=== PATIENT | female | born 1995 | race Caucasian/White ===

== ENCOUNTER 2017-10-09 12:22 | Emergency (ER) | payer MEDICAID ==
[~2017-10-09] VITALS: Ht 167.6 cm; Wt 87.0 kg
[~2017-10-09 12:22] MED LIST: [UNRECOGNIZED DRUG - REMARK]
[2017-10-09 15:01] LABS: BASOPHILS % 0.5 % (0.0-2.0); EOSINOPHILS % 1.2 % (0.0-5.0); HEMATOCRIT. 41.6 % (36.0-48.0); HEMOGLOBIN. 14.4 g/dL (12.0-16.0); LYMPHOCYTES % 16.4 % (20.0-50.0); MEAN CORPUSCULAR HEMOGLOBIN 30.3 pg (28.0-32.0); MEAN CORPUSCULAR VOLUME 87.6 fL (81.0-99.0); MEAN PLATELET VOLUME 8.2 fl (7.4-10.4); MONOCYTES % 11.7 % (2.0-8.0); NEUTROPHILS % 70.2 % (40.0-76.0); PLATELET 279 x1000/uL (130-400); RED BLOOD CELL COUNT 4.75 mill/uL (4.2-5.4); RED CELL DISTRIBUTION WIDTH 14.7 % (11.6-14.6)
[2017-10-09 15:02] LABS: CHLORIDE 104 mEq/L (98-107)
[2017-10-09 15:05] LABS: PROTHROMBIN TIME 10.7 sec (9.4-11.6)
[2017-10-09 15:30] LABS: HCG SCREEN NEGATIVE
[2017-10-09 15:52] LABS: CLARITY URINE CLEAR (CLEAR); COLOR URINE RED (YELLOW); KETONES URINE NEGATIVE (NEGATIVE); LEUKOCYTE ESTERASE URINE 1+ (NEGATIVE); NITRITE URINE NEGATIVE (NEGATIVE); OCCULT BLOOD URINE 3+ (NEGATIVE); PH URINE 6.5 (4.5-8.0); PROTEIN URINE 1+ (NEGATIVE); UROBILINOGEN URINE 0.2 E.U./dL (0.2-1.0)
[2017-10-09] MEDS ORDERED: KETOROLAC 30MG/ML VIAL IV ONE (16:45)
[2017-10-09 20:45] VITALS: BP 136/78
== END 2017-10-09 21:15 | disposition home or self-care (01) ==
LOC: ER 12:22
DX: R10.31 Right lower quadrant pain (principal); N93.9 Abnormal uterine and vaginal bleeding, unspecified; F12.10 Cannabis abuse, uncomplicated; Z88.0 Allergy status to penicillin
CPT/HCPCS: 36415; 76705; 76830; 76856; 80053; 81003; 81025; 83690; 84703; 85025; 85610; 96374; 99285; J1885; Z7610

== ENCOUNTER 2018-09-25 11:35 | Emergency (ER) | payer MEDICAID, OTHER ==
[~2018-09-25] VITALS: Ht 167.6 cm; Wt 96.0 kg
[2018-09-25] MEDS ORDERED: IBUPROFEN 600MG TABLET PO STA (14:38)
[2018-09-25 15:00] LABS: BASOPHILS % 0.4 % (0.0-2.0); EOSINOPHILS % 1.1 % (0.0-5.0); HEMATOCRIT. 42.3 % (36.0-48.0); HEMOGLOBIN. 14.3 g/dL (12.0-16.0); MEAN CORPUSCULAR HEMOGLOBIN 29.1 pg (28.0-32.0); MEAN CORPUSCULAR VOLUME 86.5 fL (81.0-99.0); MEAN PLATELET VOLUME 8.4 fl (7.4-10.4); MONOCYTES % 5.3 % (2.0-8.0); NEUTROPHILS % 69.2 % (40.0-76.0); PLATELET 286 x1000/uL (130-400); RED BLOOD CELL COUNT 4.89 mill/uL (4.2-5.4); RED CELL DISTRIBUTION WIDTH 13.6 % (11.6-14.6)
[2018-09-25 15:07] LABS: CHLORIDE 106 mEq/L (98-107)
[2018-09-25 16:32] VITALS: BP 127/92
== END 2018-09-25 16:34 | disposition home or self-care (01) ==
LOC: ER 11:35
DX: R07.9 Chest pain, unspecified (principal)
CPT/HCPCS: 36415; 71045; 93005; 99284

== ENCOUNTER 2019-04-03 12:01 | Emergency (ER) | payer MEDICAID, OTHER ==
[~2019-04-03] VITALS: Ht 167.6 cm; Wt 86.0 kg
[2019-04-03] MEDS ORDERED: SODIUM CHLORIDE 0.9% 1,000 ML IV ONE (15:33)
[2019-04-03] MEDS ORDERED: ONDANSETRON HCL 4MG/2ML INJ IV STA (15:33)
[2019-04-03] MEDS ORDERED: FAMOTIDINE 20MG/2ML VIAL IV ONE (15:45)
[2019-04-03] MEDS ORDERED: MAGNESIUM/ALUMINUM HYDROXIDE/SIMETHICONE 30ML UDC PO ONE (15:45)
[2019-04-03 16:02] LABS: BASOPHILS % 0.3 % (0.0-2.0); EOSINOPHILS % 0.4 % (0.0-5.0); HEMATOCRIT. 43.2 % (36.0-48.0); HEMOGLOBIN. 14.4 g/dL (12.0-16.0); LYMPHOCYTES % 17.8 % (20.0-50.0); MEAN CORPUSCULAR HEMOGLOBIN 28.1 pg (28.0-32.0); MEAN CORPUSCULAR VOLUME 84.3 fL (81.0-99.0); MEAN PLATELET VOLUME 8.2 fl (7.4-10.4); MONOCYTES % 5.1 % (2.0-8.0); NEUTROPHILS % 76.4 % (40.0-76.0); PLATELET 306 x1000/uL (130-400); RED BLOOD CELL COUNT 5.12 mill/uL (4.2-5.4); RED CELL DISTRIBUTION WIDTH 14.9 % (11.6-14.6)
[2019-04-03 16:05] LABS: CHLORIDE 104 mEq/L (98-107)
[2019-04-03 16:09] LABS: ETHANOL BLOOD < 10 mg/dL
[2019-04-03 16:13] LABS: HCG SCREEN NEGATIVE
[2019-04-03 17:21] VITALS: BP 140/70
[2019-04-03 18:18] LABS: CLARITY URINE CLEAR (CLEAR); COLOR URINE YELLOW (YELLOW); KETONES URINE NEGATIVE (NEGATIVE); LEUKOCYTE ESTERASE URINE NEGATIVE (NEGATIVE); NITRITE URINE NEGATIVE (NEGATIVE); OCCULT BLOOD URINE TRACE (NEGATIVE); PH URINE 7.5 (4.5-8.0); PROTEIN URINE NEGATIVE (NEGATIVE); SPECIFIC GRAVITY URINE 1.013 (1.005-1.030); UROBILINOGEN URINE 0.2 E.U./dL (0.2-1.0)
[2019-04-03 18:31] LABS: *BARBITURATES SCREEN URINE NEGATIVE (NEGATIVE); *BENZODIAZEPINES SCREEN URINE NEGATIVE (NEGATIVE); *COCAINE SCREEN URINE NEGATIVE (NEGATIVE); METHADONE URINE SCREEN NEGATIVE (NEGATIVE); OPIATES URINE SCREEN NEGATIVE (NEGATIVE); PHENCYCLIDINE URINE SCREEN NEGATIVE (NEGATIVE)
[2019-04-03 18:32] LABS: *AMPHETAMINES SCREEN URINE NEGATIVE (NEGATIVE)
[2019-04-03 18:37] LABS: CANNABINOID URINE SCREEN PRESUMTIVE POSITIVE (NEGATIVE)
== END 2019-04-03 18:58 | disposition home or self-care (01) ==
LOC: ER 12:01
DX: R10.9 Unspecified abdominal pain (principal); N39.0 Urinary tract infection, site not specified; K21.9 Gastro-esophageal reflux disease without esophagitis; I10 Essential (primary) hypertension; F17.200 Nicotine dependence, unspecified, uncomplicated; Z71.6 Tobacco abuse counseling; Z88.0 Allergy status to penicillin
CPT/HCPCS: 36415; 71045; 80053; 80305; 80320; 81003; 83690; 83880; 84484; 84703; 85025; 93005; 96361; 96374; 96375; 99284; J2405; J3490; J7030; G0480

== ENCOUNTER 2020-04-26 17:50 | Emergency (ER) | payer OTHER ==
[~2020-04-26] VITALS: Ht 165.1 cm; Wt 90.9 kg
[2020-04-26] MEDS ORDERED: ONDANSETRON HCL 4MG/2ML INJ IV STA (18:29)
[2020-04-26] MEDS ORDERED: SODIUM CHLORIDE 0.9% 1,000 ML IV ONE (18:30)
[2020-04-26] MEDS ORDERED: FAMOTIDINE 20MG/2ML VIAL IV ONE (19:30)
[2020-04-26] MEDS ORDERED: KETOROLAC 30MG/ML VIAL IV ONE (19:30)
[2020-04-26 20:25] LABS: CLARITY URINE CLOUDY (CLEAR); COLOR URINE YELLOW (YELLOW); KETONES URINE NEGATIVE (NEGATIVE); LEUKOCYTE ESTERASE URINE NEGATIVE (NEGATIVE); NITRITE URINE NEGATIVE (NEGATIVE); OCCULT BLOOD URINE TRACE (NEGATIVE); PROTEIN URINE 1+ (NEGATIVE); SPECIFIC GRAVITY URINE 1.031 (1.005-1.030)
[2020-04-26 20:25] LABS: BASOPHILS % 0.4 % (0.0-2.0); EOSINOPHILS % 1.3 % (0.0-5.0); HEMATOCRIT. 43.2 % (36.0-48.0); HEMOGLOBIN. 14.4 g/dL (12.0-16.0); LYMPHOCYTES % 22.4 % (20.0-50.0); MEAN CORPUSCULAR HEMOGLOBIN 28.3 pg (28.0-32.0); MEAN CORPUSCULAR VOLUME 84.8 fL (81.0-99.0); MEAN PLATELET VOLUME 8.5 fl (7.4-10.4); MONOCYTES % 6.6 % (2.0-8.0); NEUTROPHILS % 69.3 % (40.0-76.0); PLATELET 318 x1000/uL (130-400); RED CELL DISTRIBUTION WIDTH 14.5 % (11.6-14.6)
[2020-04-26 20:30] LABS: CHLORIDE 104 mEq/L (98-107)
[2020-04-26 20:33] LABS: HCG SCREEN NEGATIVE
[2020-04-26 20:34] LABS: PROTHROMBIN TIME 10.2 sec (9.6-11.0)
[2020-04-26 21:36] VITALS: BP 142/82
== END 2020-04-26 21:38 | disposition home or self-care (01) ==
LOC: ER 17:50
DX: K29.70 Gastritis, unspecified, without bleeding (principal); I10 Essential (primary) hypertension; F12.10 Cannabis abuse, uncomplicated; Z88.0 Allergy status to penicillin
CPT/HCPCS: 36415; 71045; 80053; 81003; 81025; 83690; 84703; 85025; 85610; 93005; 96361; 96374; 96375; 99285; J1885; J2405; J3490; J7030

== ENCOUNTER 2020-05-16 17:04 | Emergency (ER) | payer OTHER ==
[~2020-05-16] VITALS: Ht 167.6 cm; Wt 95.0 kg
[2020-05-16] MEDS ORDERED: ACETAMINOPHEN 325MG TABLET PO STA (21:20)
[2020-05-16] MEDS ORDERED: ONDANSETRON HCL 4MG/2ML INJ IV ONE (21:30)
[2020-05-16] MEDS ORDERED: MAGNESIUM/ALUMINUM HYDROXIDE/SIMETHICONE 30ML UDC PO ONE (21:30)
[2020-05-16] MEDS ORDERED: FAMOTIDINE 20MG/2ML VIAL IV ONE (21:30)
[2020-05-16 22:13] LABS: BASOPHILS % 0.4 % (0.0-2.0); EOSINOPHILS % 1.6 % (0.0-5.0); HEMATOCRIT. 40.9 % (36.0-48.0); HEMOGLOBIN. 13.6 g/dL (12.0-16.0); LYMPHOCYTES % 27.3 % (20.0-50.0); MEAN CORPUSCULAR HEMOGLOBIN 27.9 pg (28.0-32.0); MEAN PLATELET VOLUME 8.2 fl (7.4-10.4); MONOCYTES % 6.4 % (2.0-8.0); NEUTROPHILS % 64.3 % (40.0-76.0); PLATELET 319 x1000/uL (130-400); RED BLOOD CELL COUNT 4.87 mill/uL (4.2-5.4); RED CELL DISTRIBUTION WIDTH 14.3 % (11.6-14.6)
[2020-05-16 22:26] LABS: CHLORIDE 104 mEq/L (98-107)
[2020-05-16 22:35] LABS: HCG SCREEN NEGATIVE
[2020-05-16 22:46] LABS: CLARITY URINE CLOUDY (CLEAR); COLOR URINE RED (YELLOW); KETONES URINE NEGATIVE (NEGATIVE); LEUKOCYTE ESTERASE URINE 1+ (NEGATIVE); NITRITE URINE NEGATIVE (NEGATIVE); OCCULT BLOOD URINE 3+ (NEGATIVE); PROTEIN URINE 1+ (NEGATIVE); SPECIFIC GRAVITY URINE 1.021 (1.005-1.030); UROBILINOGEN URINE 0.2 E.U./dL (0.2-1.0)
[2020-05-17] MEDS ORDERED: LIDOCAINE HCL 1% 20ML VIAL (Pyxis) INJ INFIL ONE (01:00)
[2020-05-17 02:24] VITALS: BP 115/87
== END 2020-05-17 02:25 | disposition home or self-care (01) ==
LOC: ER 17:04
DX: R07.89 Other chest pain (principal); K21.9 Gastro-esophageal reflux disease without esophagitis; I10 Essential (primary) hypertension; F12.10 Cannabis abuse, uncomplicated; Z88.0 Allergy status to penicillin
CPT/HCPCS: 36415; 71045; 80053; 81003; 81025; 84484; 84703; 85025; 93005; 96374; 96375; 99285; J2405; J3490